=== PATIENT | male | born 1940 | race Caucasian/White ===

== ENCOUNTER 2019-08-03 18:09 | Inpatient (IN) | payer OTHER ==
[~2019-08-03] VITALS: Ht 157.5 cm; Wt 81.8 kg
[~2019-08-03 18:09] MED LIST: CALC-793 PO; GABA300C PO; GLIP5TAB13 PO; METF-436 PO; RISE35TA PO
[2019-08-03 19:07] LABS: BASOPHILS # (AUTO) 0.1 X10'3 (0-0.2); BASOPHILS % (AUTO) 0.3 % (0-1); EOSINOPHILS # (AUTO) 0.1 X10'3 (0-0.9); EOSINOPHILS % (AUTO) 0.6 % (0-6); HEMATOCRIT 31.2 % (42.0-52.0); HEMOGLOBIN 10.2 g/dl (14.0-17.9); LYMPHOCYTES # (AUTO) 1.3 X10'3 (1.1-4.8); LYMPHOCYTES % (AUTO) 6.5 % (21-51); MEAN CORPUSCULAR HEMOGLOBIN 25.6 PG (27.0-31.0); MEAN CORPUSCULAR HGB CONC 32.8 g/dL (33.0-36.5); MEAN CORPUSCULAR VOLUME 78.1 FL (78-98); MEAN PLATELET VOLUME 7.2 FL (7.4-10.4); MONOCYTES # (AUTO) 0.8 X10'3 (0-0.9); MONOCYTES % (AUTO) 4.1 % (2-12); NEUTROPHILS # (AUTO) 17.3 X10'3 (1.8-7.7); NEUTROPHILS % (AUTO) 88.5 % (42-75); PLATELET COUNT 262 X10'3 (140-440); RED CELL DISTRIBUTION WIDTH 18.5 % (11.5-14.5); WHITE BLOOD COUNT 19.5 X10'3 (4.5-11.0)
[2019-08-03 19:22] LABS: ALANINE AMINOTRANSFERASE 63 U/L (12-78); ALBUMIN/GLOBULIN RATIO 0.5 (1.1-1.5); ALKALINE PHOSPHATASE 168 IU/L (46-116); ANION GAP 12 (8-16); ASPARTATE AMINO TRANSFERASE 42 U/L (10-37); BILIRUBIN,TOTAL 0.5 MG/DL (0.1-1.0); BLOOD UREA NITROGEN 18 MG/DL (7-18); CHLORIDE 102 MMOL/L (99-107); CREATININE 0.82 MG/DL (0.60-1.10); GLUCOSE 235 MG/DL (70-104); POTASSIUM 3.5 MMOL/L (3.5-5.1); SODIUM 137 MMOL/L (135-145); TOTAL CARBON DIOXIDE 22.9 MMOL/L (24-32); TOTAL PROTEIN 6.4 G/DL (6.4-8.2); eGFR > 90 ML/MIN
--- NOTE | 2019-08-03 19:40 | NUR ---
KEVIN VILLANUEVA PHONE NUMBER [phone]
[2019-08-03] MEDS ORDERED: CEPH-572 PO (20:02)
[2019-08-03] MEDS ORDERED: mag hydrox/Alum hydrox/simeth 30ml oral suspension PO PRN (20:05)
[2019-08-03] MEDS ORDERED: magnesium hydroxide 30ml (MOM) UD suspension PO PRN (20:05)
[2019-08-03] MEDS ORDERED: ondansetron/PF 4mg/2ml inj IV PRN (20:05)
[2019-08-03] MEDS ORDERED: morphine 2 MG/ML inj. syringe IV PRN ×2 (20:05)
[2019-08-03] MEDS ORDERED: acetaminophen 325mg tablet PO PRN (20:05)
[2019-08-03] MEDS ORDERED: vancomycin/NS 1 GM ADD-VANTAGE 250 ML IV ONE (20:25)
[2019-08-03] MEDS: CefTRIAXone 2gm/D5W 50ml 50 ML IV SCH (20:32)
[2019-08-03] MEDS: normal saline 1000ml 1,000 ML IV SCH (20:33)
--- NOTE | 2019-08-03 20:59 | NUR ---
Patient in room ED 13. I have received report from Kris ED RN and had the opportunity to ask questions and assume patient care.
[2019-08-03 21:45] VITALS: BP 116/65
--- NOTE | 2019-08-03 22:20 | NUR ---
Straight cath done, 14 Divehi by sterile procedure with GEE Lester. 325 mL. Specimen obtained and sent to lab. Patient tolerate procedure well. After completion condom catheter applied. 26cm condom catheter.
--- NOTE | 2019-08-03 22:47 | NUR ---
Student documentation: I have reviewed and agree with all interventions, assessments performed and documented by Liv Drake Rn student.
--- NOTE | 2019-08-03 22:52 | NUR ---
Received call from tele chamber, tele notes AFib, no p waves, HR 70-80. Pt denies any cardiac problem. Dr. Juárez awares Will continue to monitor patient.
[2019-08-03 22:54] LABS: CLARITY,URINE SLIGHTLY CLOUDY (Clear); COLOR,URINE YELLOW (Yellow); GLUCOSE, URINE NEGATIVE (Neg); KETONES,URINE NEGATIVE (Neg); LEUKOCYTE ESTERASE ,URINE MODERATE (Neg); NITRITES, URINE NEGATIVE (Neg); OCCULT BLOOD,URINE NEGATIVE (Neg); PROTEIN,URINE TRACE mg/dl (Neg)
[2019-08-03 23:23] LABS: UA COLLECTION TYPE STRAIGHT CATH
[2019-08-03 23:25] LABS: BACTERIA,URINE FEW /HPF (Neg); MUCUS STRANDS FEW /LPF (Neg); RBC,URINE NONE SEEN /HPF (0-2); SQUAMOUS EPITHELIAL CELL,UR FEW /LPF (FEW); WBC CLUMPS,URINE FEW /HPF (NEGATIVE); WBC,URINE 20-30 /HPF (0-4)
[2019-08-04] MEDS: VANCOmycin 1250MG/NS 250ml Bag 250 ML IV SCH ×3 (01:38→20:24)
[2019-08-04] MEDS: normal saline 1000ml 1,000 ML IV SCH ×3 (06:03→23:43)
--- NOTE | 2019-08-04 06:20 | NUR ---
Patient in room [facility]. I have received report from GEE Jarrell and had the opportunity to ask questions and assume patient care.
[2019-08-04 06:30] VITALS: BP 107/51
--- NOTE | 2019-08-04 06:35 | NUR ---
Problems reprioritized. Patient report given, questions answered & plan of care reviewed with GEE Terry.
[2019-08-04 06:48] LABS: ALBUMIN 1.8 G/DL (3.4-5.0); ANION GAP 9 (8-16); BASOPHILS % (AUTO) 0.1 % (0-1); BLOOD UREA NITROGEN 15 MG/DL (7-18); BUN/CREATININE RATIO 23.4 (5.4-32.0); CALCIUM 7.8 MG/DL (8.5-10.1); CHLORIDE 108 MMOL/L (99-107); CREATININE 0.64 MG/DL (0.60-1.10); EOSINOPHILS # (AUTO) 0.3 X10'3 (0-0.9); EOSINOPHILS % (AUTO) 1.4 % (0-6); GLUCOSE 134 MG/DL (70-104); HEMATOCRIT 29.2 % (42.0-52.0); HEMOGLOBIN 9.6 g/dl (14.0-17.9); LYMPHOCYTES # (AUTO) 1.7 X10'3 (1.1-4.8); LYMPHOCYTES % (AUTO) 9.4 % (21-51); MEAN CORPUSCULAR HEMOGLOBIN 25.5 PG (27.0-31.0); MEAN CORPUSCULAR HGB CONC 32.8 g/dL (33.0-36.5); MEAN CORPUSCULAR VOLUME 77.7 FL (78-98); MEAN PLATELET VOLUME 7.2 FL (7.4-10.4); MONOCYTES # (AUTO) 0.8 X10'3 (0-0.9); MONOCYTES % (AUTO) 4.2 % (2-12); NEUTROPHILS # (AUTO) 15.7 X10'3 (1.8-7.7); NEUTROPHILS % (AUTO) 84.9 % (42-75); PLATELET COUNT 271 X10'3 (140-440); POTASSIUM 3.5 MMOL/L (3.5-5.1); RED BLOOD COUNT 3.76 X10'6 (4.70-6.10); RED CELL DISTRIBUTION WIDTH 18.3 % (11.5-14.5); SODIUM 142 MMOL/L (135-145); TOTAL CARBON DIOXIDE 25.1 MMOL/L (24-32); WHITE BLOOD COUNT 18.5 X10'3 (4.5-11.0); eGFR > 90 ML/MIN
[2019-08-04] MEDS ORDERED: glucagon, human recombinant 1mg kit SUBCUT PRN (07:15)
[2019-08-04] MEDS ORDERED: insulin Lispro (HumaLOG) vial - multi-dose SQ SCH (07:15)
[2019-08-04] MEDS ORDERED: dextrose ORAL solution 15 GM/59 ML bottle PO PRN ×2 (07:15)
[2019-08-04] MEDS ORDERED: dextrose 50%-water 50ml dispensing syringe IV PRN ×2 (07:15)
[2019-08-04] MEDS: gabapentin 300mg capsule PO SCH ×2 (07:38→20:24)
[2019-08-04] MEDS: CefTRIAXone 2gm/D5W 50ml 50 ML IV SCH (07:38)
[2019-08-04] MEDS: heparin, porcine 5000 units/ml vial SQ SCH ×2 (07:39→20:24)
[2019-08-04] MEDS: metFORMIN 500mg tablet PO SCH ×2 (07:39→17:39)
[2019-08-04] MEDS ORDERED: VANCOmycin 1250MG/NS 250ml Bag 250 ML IV SCH (08:00)
[2019-08-04] MEDS ORDERED: glipizide 5mg tablet PO SCH (08:00)
[2019-08-04 11:00] VITALS: BP 123/62
[2019-08-04] MEDS ORDERED: IBUP-1986 PO (14:36)
[2019-08-04] MEDS: NYSTATIN CREAM - 30GM TUBE TP SCH (15:14)
--- NOTE | 2019-08-04 15:53 | NUR ---
DM Consult: Pt A1C <7 and not appropriate for DM ed at this time. Addendum: 08/04/19 at [address] Amended: Links added.
--- NOTE | 2019-08-04 18:45 | NUR ---
Problems reprioritized. Patient report given, questions answered & plan of care reviewed with GEE Rosen.
[2019-08-04 18:50] VITALS: BP_SYST 105; BP_SYST 128; BP_DIAS 65; BP_DIAS 68
[2019-08-04] MEDS: insulin glargine (Lantus) pen - multi-dose SQ SCH (21:00)
[2019-08-05] VITALS: BP 105/65
[2019-08-05] MEDS: normal saline 1000ml 1,000 ML IV SCH ×2 (01:20→12:03)
--- NOTE | 2019-08-05 06:46 | NUR ---
Problems reprioritized. Patient report given, questions answered & plan of care reviewed with CHICA. Addendum: 08/05/19 at 0647 by Saad Nice RN Amended: Links added.
--- NOTE | 2019-08-05 06:47 | NUR ---
Patient in room [facility]. I have received report from kalli george and had the opportunity to ask questions and assume patient care.
[2019-08-05] MEDS ORDERED: VANCOMYCIN LEVEL IV ONE (07:30)
[2019-08-05 08:00] VITALS: BP 129/69
[2019-08-05] MEDS: CefTRIAXone 2gm/D5W 50ml 50 ML IV SCH (08:08)
[2019-08-05] MEDS: metFORMIN 500mg tablet PO SCH ×2 (08:10→18:58)
[2019-08-05] MEDS: NYSTATIN CREAM - 30GM TUBE TP SCH ×2 (08:10→19:39)
[2019-08-05] MEDS: heparin, porcine 5000 units/ml vial SQ SCH ×2 (08:11→19:38)
[2019-08-05] MEDS: gabapentin 300mg capsule PO SCH ×2 (08:15→19:38)
[2019-08-05 08:22] LABS: BASOPHILS % (AUTO) 0.3 % (0-1); EOSINOPHILS # (AUTO) 0.4 X10'3 (0-0.9); EOSINOPHILS % (AUTO) 2.9 % (0-6); HEMOGLOBIN 9.9 g/dl (14.0-17.9); LYMPHOCYTES # (AUTO) 1.5 X10'3 (1.1-4.8); LYMPHOCYTES % (AUTO) 11.7 % (21-51); MEAN CORPUSCULAR HEMOGLOBIN 25.9 PG (27.0-31.0); MEAN CORPUSCULAR HGB CONC 33.1 g/dL (33.0-36.5); MEAN CORPUSCULAR VOLUME 78.2 FL (78-98); MONOCYTES # (AUTO) 0.6 X10'3 (0-0.9); MONOCYTES % (AUTO) 4.6 % (2-12); NEUTROPHILS # (AUTO) 10.5 X10'3 (1.8-7.7); NEUTROPHILS % (AUTO) 80.5 % (42-75); PLATELET COUNT 348 X10'3 (140-440); RED BLOOD COUNT 3.84 X10'6 (4.70-6.10); RED CELL DISTRIBUTION WIDTH 18.2 % (11.5-14.5); WHITE BLOOD COUNT 13.1 X10'3 (4.5-11.0)
[2019-08-05 08:32] LABS: ALBUMIN 1.8 G/DL (3.4-5.0); ANION GAP 6 (8-16); BLOOD UREA NITROGEN 10 MG/DL (7-18); BUN/CREATININE RATIO 16.4 (5.4-32.0); CALCIUM 7.6 MG/DL (8.5-10.1); CHLORIDE 111 MMOL/L (99-107); CREATININE 0.61 MG/DL (0.60-1.10); GLUCOSE 119 MG/DL (70-104); POTASSIUM 3.3 MMOL/L (3.5-5.1); SODIUM 144 MMOL/L (135-145); TOTAL CARBON DIOXIDE 26.8 MMOL/L (24-32); VANCOMYCIN,TROUGH 19.3 UG/ML (6.0-14.0); eGFR > 90 ML/MIN
[2019-08-05] MEDS: VANCOmycin 1250MG/NS 250ml Bag 250 ML IV SCH ×2 (08:41→19:41)
[2019-08-05] MEDS ORDERED: CRAN500C4 PO (14:34)
[2019-08-05] MEDS ORDERED: ASPI81TA52 PO (14:34)
[2019-08-05] MEDS ORDERED: MULT-1172 PO (14:35)
--- NOTE | 2019-08-05 15:24 | NUR ---
PRESSURE ULCER EDUCATION: DEFINITION: A pressure ulcer is an area of skin that breaks down when you stay in one position too long. The constant pressure against the skin reduces the blood flow to that area and the affected tissue dies. CAUSES: "Being bedridden or in a wheelchair "Fragile skin "Having a chronic condition, such as diabetes or vascular disease "Inability to move certain parts of your body without assistance "Older age "Incontinence of urine or stool SYMPTOMS: "A reddened area that DOES NOT turn white when pressed on - this can be the beginning of a pressure ulcer "A blister, deep sore or a crater - these can be advanced pressure ulcers FIRST AID: "Relieve the pressure on this area "Keep the area clean and dry "Call your primary doctor if you see any of the above symptoms "DO NOT massage the area "DO NOT use a donut shaped or ring shaped pillow- these actually interfere with the blood flow and cause complications PREVENTION: "Check for pressure ulcers everyday "Change position at least every two hours to relieve pressure "Use items that help relieve pressure- pillows, sheepskin, foam padding, and powders. "Keep skin clean and dry "Eat healthy well balanced meals "Exercise daily IF YOU SEE ANY OF THESE SYMPTOMS WHILE IN THE HOSPITAL - TELL YOUR NURSE IMMEDIATELY. IF YOU SEE ANY OF THESE SYMPTOMS WHILE AT HOME OR HAVE ANY QUESTIONS OR CONCERNS ABOUT PRESSURE ULCERS - CALL YOUR PRIMARY DOCTOR IMMEDIATELY. Addendum: 08/05/19 at 1524 by Digna Poole RN Amended: Links added.
--- NOTE | 2019-08-05 19:03 | NUR ---
All cares given placed on new bed. Wound team assessed and dressed wounds. Report given to marquez FLYNN
[2019-08-05 20:00] VITALS: BP 155/79
[2019-08-05] MEDS: mineral oil/petrolatum, white cream 113gm jar TP SCH (20:11)
[2019-08-05] MEDS: insulin glargine (Lantus) pen - multi-dose SQ SCH (21:00)
[2019-08-06] VITALS: BP 129/76
--- NOTE | 2019-08-06 06:11 | NUR ---
Problems reprioritized. Patient report given, questions answered & plan of care reviewed with Soniya FLYNN.
[2019-08-06 06:13] LABS: ALBUMIN 1.6 G/DL (3.4-5.0); ANION GAP 7 (8-16); BLOOD UREA NITROGEN 9 MG/DL (7-18); BUN/CREATININE RATIO 14.1 (5.4-32.0); CALCIUM 8.2 MG/DL (8.5-10.1); CHLORIDE 113 MMOL/L (99-107); CREATININE 0.64 MG/DL (0.60-1.10); GLUCOSE 116 MG/DL (70-104); POTASSIUM 3.8 MMOL/L (3.5-5.1); SODIUM 145 MMOL/L (135-145); TOTAL CARBON DIOXIDE 25.5 MMOL/L (24-32); eGFR > 90 ML/MIN
[2019-08-06 06:18] LABS: BASOPHILS # (AUTO) 0.1 X10'3 (0-0.2); BASOPHILS % (AUTO) 0.6 % (0-1); EOSINOPHILS # (AUTO) 0.4 X10'3 (0-0.9); EOSINOPHILS % (AUTO) 4.1 % (0-6); HEMATOCRIT 28.3 % (42.0-52.0); HEMOGLOBIN 9.4 g/dl (14.0-17.9); LYMPHOCYTES # (AUTO) 1.8 X10'3 (1.1-4.8); MEAN CORPUSCULAR HEMOGLOBIN 26.2 PG (27.0-31.0); MEAN CORPUSCULAR HGB CONC 33.4 g/dL (33.0-36.5); MEAN CORPUSCULAR VOLUME 78.3 FL (78-98); MONOCYTES # (AUTO) 0.6 X10'3 (0-0.9); MONOCYTES % (AUTO) 5.8 % (2-12); NEUTROPHILS # (AUTO) 7.5 X10'3 (1.8-7.7); NEUTROPHILS % (AUTO) 72.5 % (42-75); PLATELET COUNT 356 X10'3 (140-440); RED BLOOD COUNT 3.61 X10'6 (4.70-6.10); RED CELL DISTRIBUTION WIDTH 18.5 % (11.5-14.5); WHITE BLOOD COUNT 10.3 X10'3 (4.5-11.0)
[2019-08-06 07:00] VITALS: BP 158/68
--- NOTE | 2019-08-06 07:03 | NUR ---
Patient in room [facility]. I have received report from Nedra FLYNN and had the opportunity to ask questions and assume patient care.
[2019-08-06] MEDS: CefTRIAXone 2gm/D5W 50ml 50 ML IV SCH (07:57)
[2019-08-06] MEDS: metFORMIN 500mg tablet PO SCH ×2 (07:57→17:23)
[2019-08-06] MEDS: heparin, porcine 5000 units/ml vial SQ SCH ×2 (07:58→19:58)
[2019-08-06] MEDS: gabapentin 300mg capsule PO SCH ×2 (08:03→19:55)
[2019-08-06] MEDS: mineral oil/petrolatum, white cream 113gm jar TP SCH ×2 (08:09→20:07)
[2019-08-06] MEDS: NYSTATIN CREAM - 30GM TUBE TP SCH ×2 (08:09→20:17)
[2019-08-06] MEDS: VANCOmycin 1250MG/NS 250ml Bag 250 ML IV SCH ×2 (08:59→20:01)
[2019-08-06] MEDS: normal saline 1000ml 1,000 ML IV SCH (09:04)
[2019-08-06 11:00] VITALS: BP 132/66
[2019-08-06 11:12] LABS: ANISOCYTOSIS 2+; MICROCYTOSIS 1+; PLATELET ESTIMATE NORMAL
--- NOTE | 2019-08-06 18:00 | NUR ---
Patient in room [facility]. I have received report from Soniya FLYNN and had the opportunity to ask questions and assume patient care.
--- NOTE | 2019-08-06 18:53 | NUR ---
All cares given to patient. SCX1 450mls patient incontinent B&B x1. Seen by Dr Juárez. and Dr gross, all orders continued. patient appears stable. report given to Nedra FLYNN
[2019-08-06] MEDS: lactobacillus rhamnosus 10,000 MMU CELLS/CAPSULE PO SCH (19:55)
[2019-08-06] MEDS: insulin glargine (Lantus) pen - multi-dose SQ SCH (21:00)
[2019-08-07] VITALS: BP 138/71
[2019-08-07] MEDS: cefepime 1GM in D5W 50mL 50 ML IV SCH ×3 (00:23→16:16)
--- NOTE | 2019-08-07 06:07 | NUR ---
Problems reprioritized. Patient report given, questions answered & plan of care reviewed with Nancy FLYNN.
[2019-08-07 06:11] LABS: BASOPHILS # (AUTO) 0.1 X10'3 (0-0.2); BASOPHILS % (AUTO) 0.7 % (0-1); EOSINOPHILS # (AUTO) 0.3 X10'3 (0-0.9); EOSINOPHILS % (AUTO) 2.9 % (0-6); HEMATOCRIT 29.7 % (42.0-52.0); HEMOGLOBIN 9.7 g/dl (14.0-17.9); LYMPHOCYTES # (AUTO) 1.9 X10'3 (1.1-4.8); LYMPHOCYTES % (AUTO) 15.7 % (21-51); MEAN CORPUSCULAR HEMOGLOBIN 25.5 PG (27.0-31.0); MEAN CORPUSCULAR HGB CONC 32.6 g/dL (33.0-36.5); MEAN CORPUSCULAR VOLUME 78.1 FL (78-98); MEAN PLATELET VOLUME 6.7 FL (7.4-10.4); MONOCYTES # (AUTO) 0.6 X10'3 (0-0.9); MONOCYTES % (AUTO) 4.9 % (2-12); NEUTROPHILS % (AUTO) 75.8 % (42-75); PLATELET COUNT 405 X10'3 (140-440); RED BLOOD COUNT 3.81 X10'6 (4.70-6.10); RED CELL DISTRIBUTION WIDTH 18.3 % (11.5-14.5); WHITE BLOOD COUNT 11.9 X10'3 (4.5-11.0)
--- NOTE | 2019-08-07 06:28 | NUR ---
Patient in room [facility]. I have received report from Nedra FLYNN and had the opportunity to ask questions and assume patient care.
[2019-08-07 06:37] LABS: ALBUMIN 1.7 G/DL (3.4-5.0); ANION GAP 8 (8-16); BLOOD UREA NITROGEN 11 MG/DL (7-18); BUN/CREATININE RATIO 17.5 (5.4-32.0); CHLORIDE 113 MMOL/L (99-107); CREATININE 0.63 MG/DL (0.60-1.10); GLUCOSE 114 MG/DL (70-104); POTASSIUM 3.5 MMOL/L (3.5-5.1); SODIUM 146 MMOL/L (135-145); TOTAL CARBON DIOXIDE 24.7 MMOL/L (24-32); eGFR > 90 ML/MIN
[2019-08-07] MEDS: gabapentin 300mg capsule PO SCH ×2 (07:38→19:40)
[2019-08-07] MEDS: metFORMIN 500mg tablet PO SCH ×2 (07:38→17:26)
[2019-08-07] MEDS: lactobacillus rhamnosus 10,000 MMU CELLS/CAPSULE PO SCH ×2 (07:38→19:40)
[2019-08-07] MEDS: heparin, porcine 5000 units/ml vial SQ SCH ×2 (07:43→19:41)
[2019-08-07 07:48] LABS: ANISOCYTOSIS 2+; MICROCYTOSIS 1+; PLATELET ESTIMATE NORMAL; TOTAL CELLS COUNTED 100
[2019-08-07 07:49] LABS: HYPOCHROMASIA 1+; POLYCHROMASIA FEW
[2019-08-07] MEDS: mineral oil/petrolatum, white cream 113gm jar TP SCH ×2 (08:00→19:49)
[2019-08-07] MEDS: NYSTATIN CREAM - 30GM TUBE TP SCH ×2 (08:00→19:49)
[2019-08-07 08:07] VITALS: BP 161/74
[2019-08-07] MEDS: VANCOmycin 1250MG/NS 250ml Bag 250 ML IV SCH ×2 (08:45→19:40)
[2019-08-07 11:50] VITALS: BP 143/58
--- NOTE | 2019-08-07 17:18 | NUR ---
300 ml straight cath. void x1 incontinent. Addendum: 08/07/19 at 1720 by Sarah Molina RN Amended: Links added.
[2019-08-07 18:00] VITALS: BP 181/86
--- NOTE | 2019-08-07 18:45 | NUR ---
Patient in room [facility]. I have received report from GEE Cruz and had the opportunity to ask questions and assume patient care.
--- NOTE | 2019-08-07 19:03 | NUR ---
Problems reprioritized. Patient report given, questions answered & plan of care reviewed with Ike FLYNN.
[2019-08-07 19:30] VITALS: BP 160/84
[2019-08-07] MEDS: insulin glargine (Lantus) pen - multi-dose SQ SCH (21:00)
[2019-08-08] VITALS: BP 108/66
[2019-08-08] MEDS: cefepime 1GM in D5W 50mL 50 ML IV SCH ×3 (00:38→16:51)
--- NOTE | 2019-08-08 06:00 | NUR ---
Patient in room [facility]. I have received report from GEE More and had the opportunity to ask questions and assume patient care.
--- NOTE | 2019-08-08 06:20 | NUR ---
Problems reprioritized. Patient report given, questions answered & plan of care reviewed with GEE Gomez.
[2019-08-08 06:22] LABS: BASOPHILS % (AUTO) 0.3 % (0-1); EOSINOPHILS # (AUTO) 0.3 X10'3 (0-0.9); EOSINOPHILS % (AUTO) 2.2 % (0-6); HEMATOCRIT 31.3 % (42.0-52.0); HEMOGLOBIN 10.2 g/dl (14.0-17.9); LYMPHOCYTES # (AUTO) 1.4 X10'3 (1.1-4.8); LYMPHOCYTES % (AUTO) 11.3 % (21-51); MEAN CORPUSCULAR HEMOGLOBIN 25.5 PG (27.0-31.0); MEAN CORPUSCULAR HGB CONC 32.6 g/dL (33.0-36.5); MEAN CORPUSCULAR VOLUME 78.2 FL (78-98); MEAN PLATELET VOLUME 6.8 FL (7.4-10.4); MONOCYTES # (AUTO) 0.7 X10'3 (0-0.9); MONOCYTES % (AUTO) 5.2 % (2-12); NEUTROPHILS # (AUTO) 10.2 X10'3 (1.8-7.7); PLATELET COUNT 429 X10'3 (140-440); RED CELL DISTRIBUTION WIDTH 18.6 % (11.5-14.5); WHITE BLOOD COUNT 12.6 X10'3 (4.5-11.0)
[2019-08-08 06:30] LABS: ALBUMIN 1.9 G/DL (3.4-5.0); ANION GAP 11 (8-16); BLOOD UREA NITROGEN 12 MG/DL (7-18); BUN/CREATININE RATIO 19.7 (5.4-32.0); CALCIUM 8.8 MG/DL (8.5-10.1); CHLORIDE 111 MMOL/L (99-107); CREATININE 0.61 MG/DL (0.60-1.10); GLUCOSE 120 MG/DL (70-104); POTASSIUM 3.5 MMOL/L (3.5-5.1); SODIUM 145 MMOL/L (135-145); TOTAL CARBON DIOXIDE 23.5 MMOL/L (24-32); eGFR > 90 ML/MIN
[2019-08-08 08:00] VITALS: BP 164/76
[2019-08-08] MEDS: lactobacillus rhamnosus 10,000 MMU CELLS/CAPSULE PO SCH ×2 (08:50→21:20)
[2019-08-08] MEDS: gabapentin 300mg capsule PO SCH ×2 (08:50→21:20)
[2019-08-08] MEDS: metFORMIN 500mg tablet PO SCH ×2 (08:51→16:51)
[2019-08-08] MEDS: heparin, porcine 5000 units/ml vial SQ SCH ×2 (08:51→21:21)
[2019-08-08] MEDS: NYSTATIN CREAM - 30GM TUBE TP SCH ×2 (08:52→21:21)
[2019-08-08] MEDS: mineral oil/petrolatum, white cream 113gm jar TP SCH ×2 (08:52→21:22)
[2019-08-08 09:41] LABS: ANISOCYTOSIS 2+; LARGE PLATELETS FEW; MICROCYTOSIS 1+; PLATELET ESTIMATE NORMAL; POLYCHROMASIA FEW
[2019-08-08 11:00] VITALS: BP 160/83
[2019-08-08] MEDS: VANCOmycin 1250MG/NS 250ml Bag 250 ML IV SCH ×2 (11:25→21:21)
--- NOTE | 2019-08-08 14:39 | NUR ---
Initial: Pt admit with right leg cellulitis and wounds. 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 Pt seen at bedside provided with written and verbal protein education and coupons for Elmo supplement. Pt on heart healthy CHO controlled diet documented with 75-100% PO intake. Pt agrees to strawberry Elmo shake BIDBD to support wound healing needs, diana WADE and d/w bedside RN. Pt currently endorses a good appetite however reports he dislikes the food d/t lack of seasoning. RD informed pt about the alternative seasoning that he reports he was unaware he was getting and pt agreed to salsa with breakfast, d/w dietary. Pt denies food allergies or difficulty chewing/swallowing. LBM 08/06. Pt provided with RD contact information. Will continue to follow closely. Recommendations: 1) Continue heart healthy CHO controlled diet 2) Rozet Elmo shakes BIDBD to support wound healing; diana WADE and d/w RN 3) MVI for wound healing 4) Bowel care PRN 5) Wt per rx Addendum: 08/08/19 at [address] Amended: Links added.
[2019-08-08] MEDS ORDERED: JUVEN Smoothie Arginine/Glut./Ca2+Bmb (Juven 19.3pkt) 240ml cup PO SCH (17:30)
[2019-08-08 18:00] VITALS: BP 122/83
--- NOTE | 2019-08-08 18:00 | NUR ---
Problems reprioritized. Patient report given, questions answered & plan of care reviewed with GEE Graf.
[2019-08-08] MEDS: insulin glargine (Lantus) pen - multi-dose SQ SCH (21:00)
[2019-08-09] VITALS: BP 137/71
[2019-08-09] MEDS: cefepime 1GM in D5W 50mL 50 ML IV SCH ×3 (01:29→17:45)
--- NOTE | 2019-08-09 06:00 | NUR ---
Patient in room [facility]. I have received report from GEE Graf and had the opportunity to ask questions and assume patient care.
[2019-08-09 07:00] VITALS: BP 162/90
[2019-08-09] MEDS: metFORMIN 500mg tablet PO SCH ×2 (08:54→17:46)
[2019-08-09] MEDS: lactobacillus rhamnosus 10,000 MMU CELLS/CAPSULE PO SCH ×2 (08:54→20:59)
[2019-08-09] MEDS: gabapentin 300mg capsule PO SCH ×2 (08:54→20:59)
[2019-08-09] MEDS: heparin, porcine 5000 units/ml vial SQ SCH ×2 (08:55→20:59)
[2019-08-09] MEDS: mineral oil/petrolatum, white cream 113gm jar TP SCH ×2 (08:56→21:00)
[2019-08-09] MEDS: NYSTATIN CREAM - 30GM TUBE TP SCH ×2 (08:56→20:59)
[2019-08-09] MEDS: VANCOmycin 1250MG/NS 250ml Bag 250 ML IV SCH ×2 (09:42→20:59)
[2019-08-09 09:48] LABS: BASOPHILS # (AUTO) 0.1 X10'3 (0-0.2); BASOPHILS % (AUTO) 0.8 % (0-1); EOSINOPHILS # (AUTO) 0.2 X10'3 (0-0.9); EOSINOPHILS % (AUTO) 1.4 % (0-6); HEMATOCRIT 30.8 % (42.0-52.0); HEMOGLOBIN 10.2 g/dl (14.0-17.9); LYMPHOCYTES # (AUTO) 1.5 X10'3 (1.1-4.8); LYMPHOCYTES % (AUTO) 13.3 % (21-51); MEAN CORPUSCULAR HEMOGLOBIN 26.2 PG (27.0-31.0); MEAN CORPUSCULAR HGB CONC 33.2 g/dL (33.0-36.5); MEAN CORPUSCULAR VOLUME 79.1 FL (78-98); MEAN PLATELET VOLUME 6.5 FL (7.4-10.4); MONOCYTES # (AUTO) 0.5 X10'3 (0-0.9); MONOCYTES % (AUTO) 4.2 % (2-12); NEUTROPHILS # (AUTO) 8.8 X10'3 (1.8-7.7); NEUTROPHILS % (AUTO) 80.3 % (42-75); PLATELET COUNT 409 X10'3 (140-440); RED BLOOD COUNT 3.89 X10'6 (4.70-6.10); RED CELL DISTRIBUTION WIDTH 18.8 % (11.5-14.5)
[2019-08-09 10:00] LABS: ALBUMIN 1.9 G/DL (3.4-5.0); CALCIUM 8.4 MG/DL (8.5-10.1); CHLORIDE 109 MMOL/L (99-107); CREATININE 0.67 MG/DL (0.60-1.10); GLUCOSE 154 MG/DL (70-104); POTASSIUM 3.4 MMOL/L (3.5-5.1); eGFR > 90 ML/MIN
[2019-08-09 10:01] LABS: ANION GAP 4 (8-16); BLOOD UREA NITROGEN 10 MG/DL (7-18); BUN/CREATININE RATIO 14.9 (5.4-32.0); SODIUM 142 MMOL/L (135-145)
[2019-08-09 11:00] VITALS: BP 166/95
[2019-08-09] MEDS: lisinopril 10 MG tablet PO SCH (11:43)
[2019-08-09] MEDS ORDERED: lisinopril 10 MG tablet PO ONE (13:55)
--- NOTE | 2019-08-09 15:30 | NUR ---
MD Garrett notified regarding patient high bp of 173/86 after two doses of 10mg of lisinopril, nothing to be done at this time per MD.
[2019-08-09] MEDS ORDERED: magnesium 4gm in 100ml NS 100 ML IV PRN (16:00)
[2019-08-09] MEDS ORDERED: magnesium Cl slow-release 64mg tablet PO PRN (16:00)
[2019-08-09] MEDS ORDERED: potassium CL 10mEq/100ml bag 100 ML IV PRN (16:00)
[2019-08-09] MEDS: K and/or MAG REPLACEMENT MC SCH ×2 (16:00→20:00)
[2019-08-09] MEDS ORDERED: potassium Cl 20 mEq SR tablet PO PRN (16:00)
[2019-08-09] MEDS: potassium Cl 20 mEq SR tablet PO PRN ×2 (17:46→22:39)
[2019-08-09 18:00] VITALS: BP 161/88
--- NOTE | 2019-08-09 18:30 | NUR ---
Problems reprioritized. Patient report given, questions answered & plan of care reviewed with GEE Covarrubias.
[2019-08-09] MEDS: insulin glargine (Lantus) pen - multi-dose SQ SCH (21:00)
--- NOTE | 2019-08-09 22:30 | NUR ---
Patient refuses to be turned onto back and insists on being turned completely on one side or the other which directly puts pressure on the already present pressure ulcer wounds on hips and knees. Patient was educated on risks and negative health implications. Will continue to encourage proper and effective turns to relieve pressure areas.
[2019-08-10] VITALS: BP 160/86
[2019-08-10] MEDS: cefepime 1GM in D5W 50mL 50 ML IV SCH ×2 (01:01→08:14)
[2019-08-10] MEDS: potassium Cl 20 mEq SR tablet PO PRN (03:14)
--- NOTE | 2019-08-10 06:10 | NUR ---
Problems reprioritized. Patient report given, questions answered & plan of care reviewed with GEE Smith.
[2019-08-10 07:00] VITALS: BP 166/77
--- NOTE | 2019-08-10 07:08 | NUR ---
Patient in room [facility]. I have received report from GEE Covarrubias and had the opportunity to ask questions and assume patient care.
[2019-08-10] MEDS: K and/or MAG REPLACEMENT MC SCH (08:00)
[2019-08-10] MEDS: gabapentin 300mg capsule PO SCH (08:13)
[2019-08-10] MEDS: lactobacillus rhamnosus 10,000 MMU CELLS/CAPSULE PO SCH (08:13)
[2019-08-10] MEDS: metFORMIN 500mg tablet PO SCH (08:14)
[2019-08-10] MEDS: lisinopril 10 MG tablet PO SCH (08:14)
[2019-08-10] MEDS: heparin, porcine 5000 units/ml vial SQ SCH (08:16)
[2019-08-10] MEDS: VANCOmycin 1250MG/NS 250ml Bag 250 ML IV SCH (08:51)
[2019-08-10] MEDS: NYSTATIN CREAM - 30GM TUBE TP SCH (08:59)
[2019-08-10] MEDS: mineral oil/petrolatum, white cream 113gm jar TP SCH (08:59)
[2019-08-10 10:06] LABS: BASOPHILS # (AUTO) 0.1 X10'3 (0-0.2); BASOPHILS % (AUTO) 0.8 % (0-1); EOSINOPHILS # (AUTO) 0.2 X10'3 (0-0.9); EOSINOPHILS % (AUTO) 1.6 % (0-6); HEMATOCRIT 32.2 % (42.0-52.0); HEMOGLOBIN 10.5 g/dl (14.0-17.9); LYMPHOCYTES # (AUTO) 1.3 X10'3 (1.1-4.8); LYMPHOCYTES % (AUTO) 12.4 % (21-51); MEAN CORPUSCULAR HGB CONC 32.6 g/dL (33.0-36.5); MEAN CORPUSCULAR VOLUME 79.7 FL (78-98); MONOCYTES # (AUTO) 0.5 X10'3 (0-0.9); MONOCYTES % (AUTO) 4.8 % (2-12); NEUTROPHILS # (AUTO) 8.2 X10'3 (1.8-7.7); NEUTROPHILS % (AUTO) 80.4 % (42-75); PLATELET COUNT 427 X10'3 (140-440); RED BLOOD COUNT 4.04 X10'6 (4.70-6.10); RED CELL DISTRIBUTION WIDTH 18.9 % (11.5-14.5); WHITE BLOOD COUNT 10.2 X10'3 (4.5-11.0)
[2019-08-10 10:14] LABS: ALBUMIN 2.1 G/DL (3.4-5.0); ANION GAP 4 (8-16); BLOOD UREA NITROGEN 11 MG/DL (7-18); BUN/CREATININE RATIO 16.9 (5.4-32.0); CALCIUM 8.7 MG/DL (8.5-10.1); CHLORIDE 110 MMOL/L (99-107); CREATININE 0.65 MG/DL (0.60-1.10); GLUCOSE 151 MG/DL (70-104); POTASSIUM 4.3 MMOL/L (3.5-5.1); SODIUM 142 MMOL/L (135-145); TOTAL CARBON DIOXIDE 27.8 MMOL/L (24-32); eGFR > 90 ML/MIN
[2019-08-10 11:30] VITALS: BP 154/63
[2019-08-10] MEDS ORDERED: LISI10TA4 PO (15:47)
[2019-08-10] MEDS ORDERED: CEPH250T PO (15:48)
--- NOTE | 2019-08-10 16:39 | NUR ---
Pt D/c'd home per Dr Garrett. Pt in stable condition, alert and oriented. Cellulitis to RLE resolved. multiple chronic pressure sore still present. D/C pictures taken. Discharge and medication instruction given to pt. IV removed. Pt was escorted to front lobby on pt's W/C. Left the hospital via private vehicle accompanied by and son.
== END 2019-08-10 16:27 | disposition home health service (06) | DRG 571 ==
LOC: ER 18:09 → ED HOLD 20:03 → SUR 3N 21:15
PROVIDERS: ADMIT Family Medicine; ATTEND Internal Medicine
PROC: 0JBL0ZZ Excision of Right Upper Leg Subcutaneous Tissue and Fascia, Open Approach (ICD-10-PCS; principal; 2019-08-09)
PROC: 0JBM0ZZ Excision of Left Upper Leg Subcutaneous Tissue and Fascia, Open Approach (ICD-10-PCS; 2019-08-09)
DX: L03.115 Cellulitis of right lower limb (principal); G82.20 Paraplegia, unspecified; L89.159 Pressure ulcer of sacral region, unspecified stage; D63.8 Anemia in other chronic diseases classified elsewhere; R03.0 Elevated blood-pressure reading, without diagnosis of hypertension; E11.40 Type 2 diabetes mellitus with diabetic neuropathy, unspecified; Z98.2 Presence of cerebrospinal fluid drainage device; Z90.49 Acquired absence of other specified parts of digestive tract; E87.6 Hypokalemia
CPT/HCPCS: 36415; 80048; 80053; 80202; 81001; 82948; 83036; 83605; 85025; 87040; 87081; 87088; 99285; G0378; J0692; J0696; J1644; J1815; J3370; J7030